=== PATIENT | male | born 1980 | race Caucasian/White ===

== ENCOUNTER 2023-08-03 00:37 | Emergency (ER) | payer SELFPAY | END 2023-08-03 01:15 | disposition home or self-care (01) | LOC: MW.ED 00:37 | DX: S81.802A Unspecified open wound, left lower leg, initial encounter (principal); S81.801A Unspecified open wound, right lower leg, initial encounter; Z88.5 Allergy status to narcotic agent | CPT/HCPCS: 99282; 99283 ==

== ENCOUNTER 2023-08-03 04:46 | Emergency (ER) | payer SELFPAY ==
[2023-08-03] MEDS ORDERED: ceFAZolin 2 GM in Sodium Chloride 0.9% 50 ML IV ONE (05:09)
[2023-08-03] MEDS ORDERED: Ketorolac 30 MG/ML SDV IVPUSH ONE (05:11)
[2023-08-03 05:45] LABS: CALCIUM 8.4 mg/dL (8.5-10.1); CARBON DIOXIDE,CO2 28.3 mmol/L (21.0-32.0); CREATININE 1.4 mg/dL (0.8-1.3); EST CRCL DRUG DOSING (CG) 76.21 mL/min; POTASSIUM,K 4.3 mmol/L (3.5-5.1)
[2023-08-03 06:22] LABS: HEMOGLOBIN 10.6 g/dL (14.0-18.0); MEAN CORPUSCULAR HEMOGLOBIN 29.4 pg (28.0-32.0); MEAN CORPUSCULAR HGB CONC 33.1 g/dL (32.0-36.0); MEAN CORPUSCULAR VOLUME 88.6 fL (83.0-99.0); RED BLOOD CELL COUNT 3.61 M/uL (4.52-5.90); WHITE BLOOD CELL COUNT,WBC 8.61 K/uL (3.9-11.3)
[2023-08-03 06:23] LABS: EOSINOPHILS PERCENT AUTO 4.6 % (0.0-6.0); LYMPHOCYTES PERCENT AUTO 67.8 % (24.0-44.0); MEAN PLATELET VOLUME 9.7 fL (9.4-12.4); MONOCYTES PERCENT AUTO 7.8 % (0.0-8.0); NEUTROPHILS PERCENT AUTO 19.1 % (41.0-71.0); PLATELET COUNT,PLT 192 K/uL (150-400)
[2023-08-03 06:24] LABS: BASOPHILS ABSOLUTE AUTO 0.05 K/uL (0.00-0.20); BASOPHILS PERCENT AUTO 0.6 % (0.0-1.0); IMMATURE GRAN ABSOLUTE AUTO 0.01 K/uL (0.00-0.05); IMMATURE GRAN PERCENT AUTO 0.1 % (0.0-0.4); LYMPHOCYTES ABSOLUTE AUTO 5.84 K/uL (1.00-4.80); MONOCYTES ABSOLUTE AUTO 0.67 K/uL (0.00-0.80); NEUTROPHILS ABSOLUTE AUTO 1.64 K/uL (1.80-7.70)
== END 2023-08-03 06:47 | disposition home or self-care (01) ==
LOC: MW.ED 04:46
DX: L03.115 Cellulitis of right lower limb (principal); Z88.5 Allergy status to narcotic agent
CPT/HCPCS: 36415; 80048; 85025; 96365; 96375; 99283; J0690; J1885; J3490; 99284

== ENCOUNTER 2023-10-05 07:22 | Emergency (ER) | payer SELFPAY ==
[2023-10-05] MEDS ORDERED: HYDROmorphone 1 MG/ML Syringe IVPUSH ONE ×2 (07:41→10:22)
[2023-10-05] MEDS ORDERED: Sodium Chloride 0.9% 1,000 ML IV ONE (07:41)
[2023-10-05] MEDS ORDERED: Ondansetron 4 MG/2 ML SDV IVPUSH ONE (07:41)
[2023-10-05 08:16] LABS: HEMATOCRIT 35.8 % (42.0-52.0); MEAN CORPUSCULAR HEMOGLOBIN 28.5 pg (28.0-32.0); MEAN CORPUSCULAR HGB CONC 33.5 g/dL (32.0-36.0); MEAN PLATELET VOLUME 10.1 fL (9.4-12.4); NRBC ABSOLUTE 0.02 K/uL (0.00-0.02); NRBC PERCENT 0.1 /100WBC (0.0-0.2); PLATELET COUNT,PLT 146 K/uL (150-400); RED BLOOD CELL COUNT 4.21 M/uL (4.52-5.90); WHITE BLOOD CELL COUNT,WBC 22.68 K/uL (3.9-11.3)
[2023-10-05] MEDS ORDERED: Iopamidol 755 MG/ML 500 ML Multipack Bottle IVPUSH STA (08:37)
[2023-10-05 08:43] LABS: EOSINOPHILS ABSOLUTE MAN 0.23 K/uL (0.00-0.45); EOSINOPHILS PERCENT MAN 1 % (0-6); LYMPHOCYTES ABSOLUTE MAN 21.32 K/uL (1.00-4.80); MONOCYTES ABSOLUTE MAN 0.91 K/uL (0.00-0.80); MONOCYTES PERCENT MAN 4 % (0-8); SEG NEUTROPHILS ABSOLUTE MAN 0.23 K/uL (1.80-7.70); SEG NEUTROPHILS PERCENT MAN 1 % (41-71)
[2023-10-05 08:44] LABS: A/G RATIO 1.2 (0.9-1.6); BILIRUBIN TOTAL 0.5 mg/dL (0.2-1.0); CALCIUM 8.8 mg/dL (8.5-10.1); CARBON DIOXIDE,CO2 26.3 mmol/L (21.0-32.0); CREATININE 1.3 mg/dL (0.8-1.3); EST CRCL DRUG DOSING (CG) 82.08 mL/min; LYMPHOCYTES PERCENT MAN 94 % (24-44); MAGNESIUM 1.9 mg/dL (1.8-2.4); POTASSIUM,K 4.7 mmol/L (3.5-5.1); PROTEIN TOTAL,TP 7.3 g/dL (6.4-8.2)
[2023-10-05] MEDS ORDERED: Piperacillin/Tazobactam 4.5 GM in Sodium Chloride 0.9% 100 ML IV ONE (08:44)
[2023-10-05 08:45] LABS: SMUDGE CELLS MANY
[2023-10-05 08:47] LABS: LACTIC ACID 1.1 mmol/L (0.4-2.0)
[2023-10-05 09:44] LABS: APPEARANCE,URINE CLEAR; BILIRUBIN,URINE NEGATIVE (NEGATIVE); COLOR,URINE YELLOW; GLUCOSE,URINE NEGATIVE (NEGATIVE); KETONES,URINE NEGATIVE (NEGATIVE); LEUKOCYTE ESTERASE,URINE NEGATIVE (NEGATIVE); NITRITE,URINE NEGATIVE (NEGATIVE); OCCULT BLOOD,URINE NEGATIVE (NEGATIVE); PROTEIN,URINE NEGATIVE (NEGATIVE); UROBILINOGEN,URINE 0.2 EU/dL (<2.0)
[2023-10-05 09:54] LABS: AMPHETAMINES SCREEN, URINE PRESUMPTIVE POSITIVE (CUTOFF=500); BARBITURATE SCREEN,URINE NEGATIVE (CUTOFF=200); BENZODIAZEPINES SCREEN,URINE NEGATIVE (CUTOFF=150); BUPRENORPHINE SCREEN,URINE NEGATIVE (CUTOFF=10); METHADONE SCREEN, URINE NEGATIVE (CUTOFF=200); METHAMPHETAMINES SCREEN, URINE PRESUMPTIVE POSITIVE (CUTOFF=500); OXYCODONE SCREEN,URINE NEGATIVE (CUT0FF=100); PCP SCREEN,URINE NEGATIVE (CUTOFF=25); THC SCREEN,URINE 20 NG/ML NEGATIVE (CUTOFF=50)
[2023-10-06 11:06] LABS: NEUTROPHILS% 1 % (41-71)
== END 2023-10-05 11:50 ==
LOC: MW.ED 07:22
DX: K46.0 Unspecified abdominal hernia with obstruction, without gangrene (principal); F17.210 Nicotine dependence, cigarettes, uncomplicated; Z88.0 Allergy status to penicillin; Z79.01 Long term (current) use of anticoagulants
CPT/HCPCS: 36415; 74177; 80053; 80305; 81003; 83605; 83690; 83735; 85025; 96361; 96365; 96375; 96376; 99285; J1170; J2405; J2543; J3490; J7030; Q9967

== ENCOUNTER 2023-10-11 21:15 | Emergency (ER) | payer SELFPAY ==
[2023-10-11] MEDS ORDERED: Clindamycin HCl 150 MG Cap PO STA (22:14)
== END 2023-10-11 22:29 | disposition home or self-care (01) ==
LOC: MW.ED 21:15
DX: L03.211 Cellulitis of face (principal); Z88.5 Allergy status to narcotic agent
CPT/HCPCS: 99283; A9270

== ENCOUNTER 2023-11-12 23:07 | Emergency (ER) | payer SELFPAY | END 2023-11-13 01:36 | disposition home or self-care (01) | LOC: MW.ED 23:07 | DX: J06.9 Acute upper respiratory infection, unspecified (principal); R49.0 Dysphonia; I10 Essential (primary) hypertension; Z88.5 Allergy status to narcotic agent | CPT/HCPCS: 99282; 99283 ==

== ENCOUNTER 2023-11-15 17:56 | Emergency (ER) | payer SELFPAY ==
[2023-11-15 18:49] LABS: CORONAVIRUS COVID-19 NAA NEGATIVE (NEGATIVE); INFLUENZA A NAA NEGATIVE (NEGATIVE); INFLUENZA B NAA NEGATIVE (NEGATIVE)
[2023-11-15] MEDS ORDERED: Doxycycline 100 MG Cap PO ONE (19:07)
== END 2023-11-15 19:40 | disposition home or self-care (01) ==
LOC: MW.ED 17:56
DX: J18.9 Pneumonia, unspecified organism (principal); Z88.5 Allergy status to narcotic agent; Z79.899 Other long term (current) drug therapy
CPT/HCPCS: 0240U; 71045; 99283; A9270